=== PATIENT | female | born 1955 | race Two or more races ===

== ENCOUNTER → 2017-09-05 15:42 | Outpatient (CLI) | payer OTHER, SELFPAY ==
--- NOTE | 2017-09-05 15:49 | MM_ITS ---
MM Dig screening mamm BI w/CAD CAD Screening ORDERING PHYSICIAN : Noe Aguilar PATIENT AGE: 61 years GENDER: Female COMPARISON: Previous mammograms: August INDICATION: Routine screening. No hormones. No new complaints. Noncontributory family history TECHNIQUE: Standard CC and MLO images were obtained. R2 CAD reviewed. FINDINGS Low-density breast bilaterally with no dominant mass nor suspicious calcifications. No architectural distortion. No significant new findings. Bilateral follow-up in one year recommended. CAD highlights no areas of concern either. IMPRESSION: -------- NEGATIVE STABLE bilateral mammogram.No areas of concern low-density breast/fatty replacement breast facilitates mammography. BI-RADS Category: 1 Negative RECOMMENDED FOLLOW-UP: 1YR - 1 YEAR FOLLOW-UP (A letter has been sent to the patient regarding results of the study.)
== END ==
PROVIDERS: Family Provider Family Medicine; PCP Family Medicine; Visit Provider Obstetrics & Gynecology
DX: Z12.31 Encounter for screening mammogram for malignant neoplasm of breast (principal)
CPT/HCPCS: 77067

== ENCOUNTER → 2018-09-06 15:49 | Outpatient (CLI) | payer OTHER, SELFPAY ==
--- NOTE | 2018-09-06 15:54 | MM_ITS ---
MM Dig screening mamm BI w/CAD CAD Screening COMPARISON: Digital mammograms with CAD 09/05/2017 and 09/05/2016 INDICATION: There is no personal or family history of breast cancer TECHNIQUE: Standard CC and MLO images were obtained. R2 CAD reviewed. FINDINGS: The breasts are composed primarily of fat with very minimal scattered fibroglandular densities in each breast. There is no suspicious lesion and there are no suspicious microcalcifications. There are fatty replaced nodes in both axilla. There is a benign-appearing calcification right breast. IMPRESSION: Fatty type breast parenchyma with no suspicious lesion seen BI-RADS Category: 2 Benign Finding(s) RECOMMENDED FOLLOW-UP: 1YR - 1 YEAR FOLLOW-UP (A letter has been sent to the patient regarding results of the study.)
== END ==
PROVIDERS: PCP Family Medicine; Visit Provider Family Medicine
DX: Z12.31 Encounter for screening mammogram for malignant neoplasm of breast (principal)
CPT/HCPCS: 77067

== ENCOUNTER → 2018-10-08 15:18 | Outpatient (POV) | payer OTHER, SELFPAY | PROVIDERS: Visit Provider Dermatology | DX: Z00.00 Encounter for general adult medical examination without abnormal findings (principal) ==

== ENCOUNTER → 2019-10-06 13:31 | Outpatient (CLI) | payer OTHER, SELFPAY ==
--- NOTE | 2019-10-06 13:35 | MM_ITS ---
PROCEDURE: MM DIG SCREENING MAMM BI W/CAD CLINICAL INDICATION: SCREENING There is no personal or family history of breast cancer. COMPARISON: [facility] DIG MAMM-SCREEN EBONY W/CAD from 09/05/2016 [facility] MM Dig screening mamm BI w/CAD from 09/05/2017 [facility] MM Dig screening mamm BI w/CAD from 09/06/2018 TECHNIQUE: Standard CC and MLO images and 3D Tomosynthesis was obtained. R2 CAD reviewed. FINDINGS: The breasts are composed almost entirely of fat with very minimal scattered fibroglandular densities noted. There is no suspicious lesion in either breast and no suspicious microcalcifications. There are fatty replaced nodes in both axilla. Fernando images were reviewed. IMPRESSION: Fatty type breast parenchyma with no suspicious lesions seen BI-RAD Category: 1 Negative FOLLOW-UP: 1YR 1 Year Follow-up (A letter has been sent to the patient regarding results of the study.) Dictated by: Dr. David Herbert MD 10/07/2019 08:[address] David Herbert MD in [place] 10/07/2019 08:20
== END ==
PROVIDERS: PCP Family Medicine; Referring Provider Nurse Practitioner Women's Health; Visit Provider Nurse Practitioner Women's Health
DX: Z12.31 Encounter for screening mammogram for malignant neoplasm of breast (principal)
CPT/HCPCS: 77063; 77067

== ENCOUNTER → 2020-12-10 16:13 | Outpatient (CLI) | payer OTHER, SELFPAY ==
--- NOTE | 2020-12-10 16:15 | MM_ITS ---
PROCEDURE INFORMATION: Exam: MG Screening 3D Mammography Exam date and time: 12/10/2020 4:15 PM Age: 64 years old Clinical indication: Screening exam; No personal or family HX of malignancy TECHNIQUE: Imaging protocol: Screening tomosynthesis and 2D mammography including computer-aided detection (CAD) when performed. COMPARISON: 1. MG MM DIG SCREENING MAMM BI W/CAD 10/06/2019 1:46 PM 2. MG [facility] MM Dig screening mamm BI w/CAD 09/06/2018 4:09 PM FINDINGS: MAMMOGRAPHY: Breast composition: The breasts are almost entirely fatty. Mass: None. Architectural distortion: None. Calcifications: No suspicious calcifications. Asymmetric density: None. Skin thickening: None. Axillary adenopathy: None. IMPRESSION: No mammographic evidence of malignancy. Annual screening is recommended unless otherwise clinically indicated. ASSESSMENT: BI-RADS Category 1: Negative
== END ==
PROVIDERS: PCP Family Medicine; Visit Provider Nurse Practitioner Women's Health
DX: Z12.31 Encounter for screening mammogram for malignant neoplasm of breast (principal)
CPT/HCPCS: 77063; 77067

== ENCOUNTER → 2022-02-28 14:57 | Outpatient (POV) | payer OTHER, SELFPAY | PROVIDERS: Visit Provider Dermatology | DX: Z00.00 Encounter for general adult medical examination without abnormal findings (principal) ==

== ENCOUNTER → 2022-04-18 08:46 | Outpatient (CLI) | payer MEDICARE, SELFPAY ==
--- NOTE | 2022-04-18 08:53 | XR_ITS ---
FINAL REPORT CLINICAL HISTORY: PAIN FINDINGS: RIGHT FOOT Three views of the right foot demonstrate no acute fracture or dislocation. There are mild degenerative changes. There is chronic erosion versus postoperative change of the distal aspect of the 5th proximal phalanx with widening of the interphalangeal joint. There is a small plantar calcaneal spur. The soft tissues are unremarkable. IMPRESSION: Chronic erosion versus postoperative change, distal aspect of 5th proximal phalanx. Reviewed, Interpreted and Dictated by Pernell Del Rosario III, MD Transcribed by Briana Whyte Authenticated and [facility]
--- NOTE | 2022-04-18 08:53 | XR_ITS ---
FINAL REPORT CLINICAL HISTORY: PAIN FINDINGS: LEFT FOOT Three views of the left foot demonstrate no acute fracture or dislocation. There are mild degenerative changes. There is chronic erosion versus postoperative change of the distal aspect of the 5th proximal phalanx with widening of the interphalangeal joint. There is a small plantar calcaneal spur. The soft tissues are unremarkable. IMPRESSION: Chronic erosion versus postoperative change, distal aspect of 5th proximal phalanx. Reviewed, Interpreted and Dictated by Pernell Del Rosario III, MD Transcribed by Briana Whyte Authenticated and [facility]
== END ==
PROVIDERS: PCP Family Medicine; Visit Provider Podiatrist
DX: M79.672 Pain in left foot (principal); M79.671 Pain in right foot
CPT/HCPCS: 73630

== ENCOUNTER → 2022-05-16 07:33 | Outpatient (CLI) | payer MEDICARE, OTHER, SELFPAY ==
--- NOTE | 2022-05-16 07:41 | MR_ITS ---
FINAL REPORT TECHNIQUE: Multiplanar MR of the left foot without gadolinium enhancement. CLINICAL HISTORY: mass of left foot. LEFT FOOT PAIN WORSE ON MEDIAL SIDE. SWELLING IN FOOT AND LEG. NO INJURY OR TRAUMA. KNOT ON FOOT, PUT MARKER ON KNOT. FINDINGS: Marrow signal: Unremarkable Joints: Unremarkable Tendons:Visualized tendons are unremarkable Ligaments:Major ligaments intact Plantar Fascia:No evidence of tear Cystic mass along the dorsal lateral cuboid measures 16 x 16 x 9 mm. This could represent a ganglion cyst or other benign cystic lesion including dermatologic lesion given the extreme superficial location in the subcutaneous tissues. No tendinous or bony involvement. IMPRESSION: Superficial cystic mass as above. Reviewed, Interpreted and Dictated by Benoit Ricardo MD Transcribed by Sam Pacheco Authenticated and . [facility]
== END ==
PROVIDERS: PCP Family Medicine; Visit Provider Podiatrist
DX: M67.472 Ganglion, left ankle and foot (principal)
CPT/HCPCS: 73718

== ENCOUNTER → 2022-05-25 12:36 | Outpatient (CLI) | payer MEDICARE, OTHER, SELFPAY ==
--- NOTE | 2022-05-25 12:45 | XR_ITS ---
FINAL REPORT CLINICAL HISTORY: PREOPERATIVE RESPIRATORY CLEARANCE FINDINGS: Two views of the chest were obtained. The heart size and pulmonary vascularity are within normal limits. The mediastinum is normal. No acute pulmonary abnormality is identified. There is no pneumothorax. The bony thorax is intact. IMPRESSION: No active cardiopulmonary disease. Reviewed, Interpreted and Dictated by Pernell Del Rosario III, MD Transcribed by Eden Edmondson Authenticated and [facility]
--- NOTE | 2022-05-25 13:16 | ECG_ITS ---
APPROVED REPORT Exam: Resting ECG HR:58 bpm ECG Measurements Heart Rate 58 AXES SD 139 P 36 QRSd 92 QRS 61 QT 427 T 35 QTc 423 Conclusion SINUS BRADYCARDIA BORDERLINE ECG UNCONFIRMED REPORT Electronically signed by : Dean Myers MD 05/27/2022 17:41:50
== END ==
PROVIDERS: PCP Family Medicine; Visit Provider Podiatrist
DX: M77.41 Metatarsalgia, right foot (principal); M77.42 Metatarsalgia, left foot; Z87.39 Personal history of other diseases of the musculoskeletal system and connective tissue; Z98.890 Other specified postprocedural states
CPT/HCPCS: 71046; 93005

== ENCOUNTER 2022-06-07 08:52 | Day surgery (SDC) | payer MEDICARE, OTHER, SELFPAY ==
[2022-06-07] VITALS (10 sets, daily range): BP systolic 117–157; BP diastolic 57–96; PULSE 70–79; RESP 16–19; TEMP 32–36.4; O2SAT 95–98; BMI 28.8
--- NOTE | 2022-06-07 10:50 | EXP.ANES.CKL ---
[facility] Medical History Carpal tunnel syndrome Carpal tunnel syndrome on both sides History of gastroesophageal reflux (GERD) Hypertension Surgical History History of carpal tunnel release of both wrists History of tubal ligation Family History Other Family history of acute heart failure Family history of diabetes mellitus type II Social History Smoking Status: Former smoker alcohol intake: current substance use type: denies use current occupational status: employed Travel in the last 8 weeks: None household members: spouse housing: house marital status: caffeine: Yes do you feel safe at home: Yes victim of physical abuse: No victim of emotional abuse: No victim of sexual abuse: No would you like helpful sources: No [facility] Anesthesia Checklist Patient Identification Patient Identification: Arm Band Structural Data Admitted From: Home Planned Operative Procedure/s: Lapidus bunienectomy Consent for Planned Operative Procedure(s) Verified: Yes NPO Status Verified Time NPO: 00:00 Additional verifications Anesthesia Reactions: No Hx Blood Transfusions: No Blood Transfusion Reaction: No Airway Assessment C-Spine Mobility Assessed: Yes TMJ Mobility Assessed: Yes Dentition: Good Dentition Neurological Assessment Level of Consciousness: Awake Hx Seizures: No Numbness or tingling in extremities: No Anesthesia Plan Anesthesia Risk discussed: Yes Anesthesia Plan: Verified ASA Class: III Anesthesia Type: MAC w/Block
--- NOTE | 2022-06-07 11:14 | XR_ITS ---
FINAL REPORT CLINICAL HISTORY: Post op bunbrandon HT COMPARISON: April 18, 2022 FINDINGS: LEFT FOOT Three views of the left foot were obtained. A splint obscures detail. There are interval postoperative changes of the 1st tarsal metatarsal joint with a screw plate and multiple screws present. Multiple wires are present in the 2nd, 3rd, 4th and 5th digits. IMPRESSION: Postoperative changes as above. Reviewed, Interpreted and Dictated by Pernell Del Rosario III, MD Transcribed by Briana Whyte Authenticated and [facility]
--- NOTE | 2022-06-07 13:04 | SUR.OPER ---
[id number] family given update via preop staff
--- NOTE | 2022-06-07 13:17 | SUR.OPER ---
1317 family given update via Benoit Valenzuela RN
--- NOTE | 2022-06-07 14:33 | XR_ITS ---
FINAL REPORT CLINICAL HISTORY: BUNIONECTOMY/HAMMERTOE REPAIR fluoro time 1.24 FINDINGS: FLUORO TIME PROCEDURE: Fluoroscopy in the operating room. FINDINGS: Fluoroscopy time was provided by the radiology department for the clinical service. 2 films were obtained for bunionectomy/hammertoe repair Fluoroscopy exposure time: 1 minute 24 seconds IMPRESSION: See operative report. Reviewed, Interpreted and Dictated by Pernell Del Rosario III, MD Transcribed by Eden Edmondson Authenticated and [facility]
--- NOTE | 2022-06-07 15:27 | P.PNANES_ITS ---
[facility] Anesthesia Record Part I Anesthesia Record I Intake, IV Amount: 1,000 Estimated blood loss (mL): 5 Urine output (mL): 400 Blood Products used (#): none Blood Pressure: 141/89 SaO2: 98 Pulse Rate: 79 Respiratory Rate: 18 Temperature: 97.4 F Patient is:: Drowsy and Stable Stable to PACU at:: 15:23
--- NOTE | 2022-06-07 15:37 | SUR.OPER ---
1430 family given update via Benoit Valenzuela RN
[2022-06-07 15:42] LABS: Microscopic,Cath URINE MICROSCOPIC (MICROSCOPIC)
--- NOTE | 2022-06-07 15:54 | EXP.OP.NOTE ---
Date of procedure: 06/07/22 Pre-op Diagnosis:: Left hallux valgus Left ganglion cyst Left foot metatarsalgia Left foot osteo-arthritis Left hammertoes 2?4, 5th curly toe Left tailor's bunionette Post-op Diagnosis:: Same Procedure performed:: Left lapidus bunionectomy (70121) HT 2-4 repair (25631) Reconstruction 5th curly toe (66990) Left tailor's bunionectomy Excision ganglion foot (52725) Application of graft Application of posterior splint Surgeon:: Melvi Urrutia DPM GRAPHIC PRODUCTION ARTIST:: Ray Serrano Anesthesia: GETA and regional (Left popliteal block) Estimated blood loss (mL): 30 Clinical Note:: Patient is a 66-year-old female non-smoker who presents for surgical evaluation of left foot soft tissue mass, bunion and hammertoe deformities. X-rays and MRI reviewed. Has a history of bilateral fifth toe arthroplasty years ago without complication. Has tried and failed conservative care including activity modification, taping, strapping, inserts, RICE protocol, NSAIDs, topical NSAIDs, stretching/physical therapy.? Soft tissue mass continues to grow and become painful with shoe gear. The patient has been instructed on the planned procedure, all risk versus benefits of the procedure to include bleeding, infection, nerve and blood vessel damage, need for further surgery, recurrence of deformity, recurrence of soft tissue mass, delay in healing of soft tissue or bone, failure of implant/hardware, failure of bones to heal, non-union, mal-union, prolonged pain and recovery, prolonged swelling, CRPS/RSD, DVT and anesthetic complications. No guarantees were given. All questions fully answered. The patient verbalized understanding and agreed to proceed with surgery. Written consent was obtained. Denies PM/FH of DVT. Discussed DVT/PE risk is low. Ok to take aspirin 81mg post op while immobilized. Necessary pre-op testing: CBC, CMP at PCP's office. CXR at [facility]-report noted wnl. EKG-NSR bradycardia. *Medical clearance per PCP, Dr. Juan Diego Gilman? Operative findings:: Left hallux valgus with bunion deformity. Some arthritic changes noted to the first tarsometatarsal joint. After the bunion was reduced and the foot loaded there was no excess first metatarsal plantar flexion. The pressure seem to be off the second metatarsal plantar so metatarsal osteotomy was not performed. No inter-metatarsal, intercuneiform instability on the splay test. Hammertoes 2?4 noted. Previous surgery on the fifth hammertoe which is now curly and floppy due to lack of proximal phalanx bone. Tailor's bunion noted. On the dorsal lateral foot over the cuboid, soft tissue mass noted underneath the extensor sheath consistent with a ganglion cyst. The cyst measured approximately two 1.5 x 1.5 x 1.0 cm. Operative note:: On this date and time, the patient was deemed an appropriate surgical candidate. With informed consent signed, the patient was taken to the operating theater. The patient was positioned supine. General anesthesia was induced. Tourniquet was applied to the mid-calf. The left lower extremity was prepped and draped in normal sterile fashion. IV Ancef infused. Left Lapidus bunionectomy: Tourniquet was inflated 225 mmHg. Attention directed to the dorsal medial foot where an incision was mapped out over the first metatarsal cuneiform joint. Dissection carried down full-thickness down to the level of the bone with care taken to maintain surgical hemostasis and preserve neurovascular structures. There was arthritic changes noted to the dorsal lateral aspect of the first tarsometatarsal (TMT) joint. First TMT release performed. Attention to is directed to the first interspace where a stab incision was made at the MTP joint just lateral to the EHL tendon. Lateral capsule incised and a complete suspensory ligament release was completed. There was reduction of the hallux valgus deformity noted. Next a pin was inserted dorsal medial parallel to the first TMT joint and the bunion deformity was reduced. Next in
[2022-06-07 16:30] LABS: Appearance,Urine/Cath CLEAR (Clear); Bilirubin,Cath Negative (Negative); Blood, Urine/Cath Negative (Negative); Color,Urine/Cath YELLOW (Yellow); Glucose,Urine/Cath (UA) Negative (Negative); Ketones,Urine/Cath Negative (Negative); Leukocyte Esterase,Cath Negative (Negative); Nitrate,Cath Negative (Negative); PH,Urine/Cath 7.5 (5.0-8.5); Protein,Urine/Cath Negative (Negative); Specific Gravity, Urine/Cath 1.015 (1.005-1.030); Urobilinogen,Cath 0.2 EU/dl (0.2)
[2022-06-07 16:49] LABS: Bacteria,Urine/Cath TRACE /lpf; Squamous Epithelial Ur./Cath Occasional #/hpf (0-5); WBC,Urine/Cath Occasional #/hpf (0-3)
[2022-06-08 07:18] VITALS: BP 151/84; PULSE 74; TEMP 36.4
--- NOTE | 2022-06-08 07:18 | P.PNANES_ITS ---
[facility] Anesthesia Record Part II Anesthesia Record Part II Discharge Time: 15:53 Destination: Surgical Day Care (OP Surgery) PACU nurse assessment reviewed?: Yes Patient Condition:: Good Anesthesia Complications:: None Swallowing reflex intact?: Yes Cyanosis?: No Blood Pressure: 151/84 Pulse Rate: 74 Temperature: 97.5 F Mental Status: Alert & Oriented Pain level:: 0 Nausea and/or vomitting:: None Intake, IV Amount: 0
== END 2022-06-07 16:29 | disposition home or self-care (01) ==
PROVIDERS: PCP Family Medicine; Visit Provider Podiatrist
PROC: (CPT 28090; principal; 2022-06-07 10:15)
DX: M20.42 Other hammer toe(s) (acquired), left foot (principal); M67.472 Ganglion, left ankle and foot; M20.5X2 Other deformities of toe(s) (acquired), left foot; M19.072 Primary osteoarthritis, left ankle and foot; M21.622 Bunionette of left foot; M77.42 Metatarsalgia, left foot
CPT/HCPCS: 28090; 28285 ×3; 28297; 28313; 73620; 73630; 76000; 81001; 88305; 96374; C1713; C1776; J2405; Q4211

== ENCOUNTER → 2022-06-28 10:35 | Outpatient (CLI) | payer MEDICARE, OTHER, SELFPAY ==
--- NOTE | 2022-06-28 10:40 | XR_ITS ---
FINAL REPORT CLINICAL HISTORY: left foot pain..3 weeks s/p surgery COMPARISON: May 2022 FINDINGS: 3 views of the left foot were obtained. There is a sideplate and screws securing the 1st tarsometatarsal joint. There are K-wires securing the 2nd, 3rd, and 4th digits. There is soft tissue swelling over the dorsum of the foot up to 1.6 cm. There is no acute bony abnormality. IMPRESSION: Postoperative changes as described. Reviewed, Interpreted and Dictated by Paul Vasquez MD Transcribed by Sam Pacheco Authenticated and [facility]
== END ==
PROVIDERS: PCP Family Medicine; Visit Provider Podiatrist
DX: Z98.890 Other specified postprocedural states (principal); M79.672 Pain in left foot
CPT/HCPCS: 73630

== ENCOUNTER → 2022-07-12 10:33 | Outpatient (CLI) | payer MEDICARE, SELFPAY ==
--- NOTE | 2022-07-12 10:39 | MM_ITS ---
PROCEDURE INFORMATION: Exam: MG Bilateral Screening 3D Mammography Exam date and time: 07/12/2022 10:34 AM Age: 66 years old Clinical indication: Screening examination TECHNIQUE: Imaging protocol: Bilateral Screening tomosynthesis and 2D mammography including computer-aided detection (CAD) when performed. COMPARISON: 1. MG MM DIG SCREENING MAMM BI W/CAD 12/10/2020 4:15 PM 2. MG MM DIG SCREENING MAMM BI W/CAD 10/06/2019 1:46 PM FINDINGS: MAMMOGRAPHY: Breast composition: The breasts are almost entirely fatty. Mass: None. Architectural distortion: None. Calcifications: No suspicious calcifications. Asymmetric density: None. Skin thickening: None. Axillary adenopathy: None. IMPRESSION: No mammographic evidence of malignancy. Annual screening is recommended unless otherwise clinically indicated. ASSESSMENT: BI-RADS Category 1: Negative
== END ==
PROVIDERS: PCP Family Medicine; Visit Provider Family Medicine
DX: Z12.31 Encounter for screening mammogram for malignant neoplasm of breast (principal)
CPT/HCPCS: 77063; 77067

== ENCOUNTER → 2022-07-20 09:21 | Outpatient (CLI) | payer MEDICARE, OTHER, SELFPAY ==
--- NOTE | 2022-07-20 09:27 | XR_ITS ---
FINAL REPORT CLINICAL HISTORY: post-op SURGERY JUN 07 FINDINGS: 3 views of the left foot were obtained. There is a sideplate and screws securing the 1st tarsometatarsal joint. There are 2 screws securing the osteotomies of the 2nd and 3rd PIP joints. The 5th proximal phalanx has an unusual tapered appearance that may be postoperative. There is widening of the 5th PIP joint. IMPRESSION: Postoperative changes as described. Reviewed, Interpreted and Dictated by Paul Vasquez MD Transcribed by Sam Pacheco Authenticated and [facility]
== END ==
PROVIDERS: PCP Family Medicine; Visit Provider Podiatrist
DX: G89.18 Other acute postprocedural pain (principal); R60.9 Edema, unspecified; Z98.890 Other specified postprocedural states; M79.672 Pain in left foot
CPT/HCPCS: 73630

== ENCOUNTER 2022-08-10 12:27 | Day surgery (SDC) | payer MEDICARE, OTHER, SELFPAY ==
[2022-08-01 14:17] VITALS: BMI 29.2
[2022-08-10 12:40] VITALS: BP 135/69; PULSE 67; RESP 18; TEMP 36.3; O2SAT 99
--- NOTE | 2022-08-10 13:08 | EXP.ANES.CKL ---
[facility] Disclaimer: The information contained in this section may have been updated after the patient was seen, as this information can be updated by other users. Medical History Carpal tunnel syndrome Carpal tunnel syndrome on both sides History of gastroesophageal reflux (GERD) Hypertension Surgical History History of carpal tunnel release of both wrists History of tubal ligation Hx of foot surgery Family History Other Family history of acute heart failure Family history of diabetes mellitus type I Family history of diabetes mellitus type II Family history of myocardial infarction Social History Smoking Status: Former smoker alcohol intake: current substance use type: denies use current occupational status: employed and disabled Travel in the last 8 weeks: None household members: spouse housing: house lives independently: Yes marital status: education level: high school caffeine: Yes special frederick needs: No agree to transfusion: No do you feel safe at home: Yes victim of physical abuse: No victim of emotional abuse: No victim of sexual abuse: No would you like helpful sources: No [facility] Anesthesia Checklist Patient Identification Patient Identification: Arm Band Structural Data Admitted From: Home Planned Operative Procedure/s: Colonoscopy Consent for Planned Operative Procedure(s) Verified: Yes Verified Documents: Surgical Consent and History and Physical NPO Status Verified Time NPO: 00:00 Additional verifications Anesthesia Reactions: No Hx Blood Transfusions: No Blood Transfusion Reaction: No Airway Assessment C-Spine Mobility Assessed: Yes TMJ Mobility Assessed: Yes Dentition: Good Dentition Neurological Assessment Level of Consciousness: Awake and Alert Anesthesia Plan Anesthesia Risk discussed: Yes Anesthesia Plan: Verified ASA Class: II Anesthesia Type: MAC
[2022-08-10 13:37] VITALS: O2SAT 97
--- NOTE | 2022-08-10 13:54 | P.PCN_ITS ---
Procedure: Date: 08/10/22 Patient Date of :: 1955 Procedure Performed:: Screening colonoscopy Indications:: History of polyps Performing Provider:: Niki Dumont MD Referring Provider:: Juan Diego Gilman Sedation:: Propofol Procedure:: After placing the patient in the left lateral decubitus position, the colonoscopy was gently inserted into the rectum and under direct visualization advanced to the cecum which was identified by transillumination in the right lower quadrant, identification of the ileocecal valve, appendiceal orifice, and cecal strap. Color, texture, mucosa, and anatomy of the colon were carefully examined with the scope. Findings:: Anal canal: normal Rectum: normal Sigmoid colon: normal without polyps or inflammatory changes, scattered di verticulosis Descending colon: normal without polyps or inflammatory changes Splenic flexure: normal Transverse colon: normal without polyps or inflammatory changes Hepatic flexure: normal Ascending colon: normal without polyps or inflammatory changes Cecum: normal Terminal ileum: not visualized Impression: diverticulosis, otherwise normal colonoscopy Specimens:: None Recommendations:: repeat exam in about FIVE years or so, sooner if clinically indicated. Complications:: None Estimated blood obtained (mL): 0
[2022-08-10 13:56] VITALS: BP 122/66; PULSE 79; RESP 15; TEMP 36.1; O2SAT 95
[2022-08-10 14:06] VITALS: BP 149/78; PULSE 66; RESP 16; O2SAT 93
[2022-08-10 14:16] VITALS: BP 130/65; PULSE 61; RESP 18; O2SAT 93
[2022-08-10 14:26] VITALS: BP 163/85; PULSE 61; RESP 18; O2SAT 99
== END 2022-08-10 14:26 | disposition home or self-care (01) ==
PROVIDERS: PCP Family Medicine; Visit Provider Internal Medicine Gastroenterology
PROC: 0DJD8ZZ Inspection of Lower Intestinal Tract, Via Natural or Artificial Opening Endoscopic (ICD-10-PCS; CPT 45378; principal; 2022-08-10 13:30)
DX: Z12.11 Encounter for screening for malignant neoplasm of colon (principal); K57.90 Diverticulosis of intestine, part unspecified, without perforation or abscess without bleeding; Z79.899 Other long term (current) drug therapy; Z86.010 Personal history of colon polyps
CPT/HCPCS: G0105

== ENCOUNTER → 2022-08-24 12:10 | Outpatient (CLI) | payer MEDICARE, OTHER, SELFPAY ==
--- NOTE | 2022-08-24 12:17 | XR_ITS ---
FINAL REPORT CLINICAL HISTORY: post-op COMPARISON: July 20, 2022 FINDINGS: LEFT FOOT Three views of the left foot were obtained. There are postoperative changes from arthrodesis of the 2nd and 3rd PIP joints as well as the 1st tarsal metatarsal joint. There is been a bony resection of the 5th middle phalanx. No acute fracture is identified. The hardware appears stable. IMPRESSION: Stable postoperative changes. Reviewed, Interpreted and Dictated by Benoit Ricardo MD Transcribed by Briana Whyte Authenticated and [facility]
== END ==
PROVIDERS: PCP Family Medicine; Visit Provider Podiatrist
DX: G89.18 Other acute postprocedural pain (principal); R60.9 Edema, unspecified; M79.672 Pain in left foot
CPT/HCPCS: 73630

== ENCOUNTER → 2022-10-04 07:34 | Outpatient (CLI) | payer MEDICARE, OTHER, SELFPAY ==
--- NOTE | 2022-10-04 07:34 | CT_ITS ---
FINAL REPORT TECHNIQUE: Axial images of the left foot was obtained without contrast. Sagittal and coronal reformatted images were obtained and reviewed. This study was performed with techniques to keep radiation doses as low as reasonably achievable (ALARA). Individualized dose reduction techniques using automated exposure control or adjustment of mA and/or kV according to the patient's size were employed. CLINICAL HISTORY: foot pain FINDINGS: There are postoperative changes from 1st tarsometatarsal joint fusion. The hardware is intact. There is bony fusion of the 1st tarsometatarsal joint. No acute fracture is identified. 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 Surgical screws are seen at the 2nd and 3rd PIP joints. These appear intact. There is nonspecific soft tissue edema without loculated fluid collection. No joint effusion is identified. IMPRESSION: No acute osseous abnormality. Postoperative changes with bony fusion. Nonspecific soft tissue edema. Reviewed, Interpreted and Dictated by Lilibeth Marquez MD Transcribed by Shara Black Authenticated and [facility]
== END ==
PROVIDERS: PCP Family Medicine; Visit Provider Podiatrist
DX: G89.18 Other acute postprocedural pain (principal); R60.9 Edema, unspecified; Z87.39 Personal history of other diseases of the musculoskeletal system and connective tissue; Z98.890 Other specified postprocedural states; M79.672 Pain in left foot; T84.293A Other mechanical complication of internal fixation device of bones of foot and toes, initial encounter
CPT/HCPCS: 73700

== ENCOUNTER 2022-10-18 11:00 | Outpatient (RCR) | payer MEDICARE, OTHER, SELFPAY ==
--- NOTE | 2022-08-01 11:59 | HMH.PTOPEV ---
PT Outpatient Evaluation Rehab PT Outpatient Evaluation Start: 08/01/22 10:03 Freq: Status: Active Protocol: Document 08/01/22 10:03 ELIANA (Rec: 08/01/22 11:59 ELIANA [id number]) E-signed By Heather Hurst, PT Outpatient Therapy Subjective History Subjective History Pt is a 66 y/o female that reports to PT s/p left lapidus , HT 2-4 repair, reconstruction of 5th curly toe, and ganglion removal performed on 06/07/22. Pt had postiperative radiographs performed at [facility] on 07/21/22 showing hardware intact and no sign of acute fracture or dislocation. Pt will discuss with MD of possible return to work on 09/11/21. Pt reports she discussed transitioning to a supportive tennis shoe with MD; however, is unable to find a shoe she is able to wear due to excessive swelling . Pt reports she has been using a slip on shoe around the house at times but is mostly ambulating in the boot. Pt reports main complaint of constant hypersensitivity of the entire foot and swelling that is worse with increased activity. Pt reports she is unable to sleep well at night due to hypersensitivity. Pt reports her left foot will also turn black at random times as well. Pt reports she has medial and lateral pain with prolonged standing or walking and also experiences sharp shooting pain from the heel to the toes. Medical History: GERD, Hypertension L foot girth: figure 8 52 cm, around MTPs 25 cm R foot girth: figure 8 48 cm, around MTPs 22 cm Observation: L foot discolored compared to R foot, incisions well healing without
--- NOTE | 2022-08-30 10:59 | HMH.RHREAS ---
Rehab Reassessment Rehab OP Re-assessment Start: 08/30/22 10:07 Freq: Status: Active Protocol: Document 08/30/22 10:07 ELIANA (Rec: 08/30/22 10:59 ELIANA [id number]) E-signed By Heather Hurst PT Rehab Re-assessment Subjective Subjective Pt reports she feels ~50% improved since starting PT. Pt reports her ankle and toe mobility has improved but she continues to have constant throbbing pain, hypersenitivity to light touch , intermittent swelling, and intermittent sharp, shooting pain of the lateral ankle. Pt reports she is unable to wear a supportive tennis shoe due to edema and is wearing slide sandals at all times. Pt states some days there is no swelling but other days it swells up like a balloon. I keep it elevated at all times when sitting because it hurts if it's not elevated. Pt also reports that the top of her foot will turn black and get warm almost everyday at random times. Pt reports she has an xray on 08/24/22 with good report and was also placed in an unna boot that date which she wore for 5 days . Pt erports the unna boot improved swelling temporarily but the next day was swollen again. Pt reports she is continuing to do her activities as usual and would like to go back to work as soon as possible. Pt reports Dr. Urrutia would like her to get a lymphedema pump along with implemented lymphedema treatment. Objective Objective Notes L ankle AROM: 30 PF, 10 DF, 12 eversion, 20 inversion L great toe extension: 12 L foot girth: figure 8 52 cm, around MTPs 25 cm L ankle MMT: DF 4+/5,
--- NOTE | 2022-10-02 12:06 | HMH.RHREAS ---
Rehab Reassessment Rehab OP Re-assessment Start: 08/30/22 10:07 Freq: Status: Active Protocol: Document 10/02/22 11:56 ELIANA (Rec: 10/02/22 12:06 ELIANA [id number]) E-signed By Heather Hurst PT Rehab Re-assessment Subjective Subjective Pt reports her foot seems to be doing better overall. Pt reports she continues to have swelling/edema of the dorsum of the foot and lateral ankle with prolonged weightbearing activities such as standing/ walking. Pt reports she is able to wear slip on shoes now but cannot fit insoles in the shoe due to edema at this time. Pt also reports continued tingling and hypersensitivity of the foot when the foot is swollen and intermittent lateral foot/ ankle pain. Pt reports she received an edema pump but was unable to use it due to stitches in the left leg following mole excision, reports she plans on using it today. Pt reports she saw Dr. Urrutia a few weeks ago who wants her to get a CT scan to examine the ankle further due to continued edema. Objective Objective Notes L ankle AROM: PF 40, DF 10, Eversion 10, Inversion 20 L foot girth: figure 8 52 cm L ankle MMT: 4+/5 grossly Assessment Progress Assessment Progressing as Expected Assessment Notes Pt demonstrated improved edema and plantar flexion AROM this date compared to last reassessment. Pt also reports improved subjective complaints this date compared to last reassessment. Pt will continue to benefit from skilled PT to further improve pain/ sensitivity, edema, ankle range of motion, ankle strength and functional activity tolerance to assist
== END 2022-10-18 11:05 | disposition home or self-care (01) ==
LOC: PT 11:00
PROVIDERS: PCP Family Medicine; Visit Provider Podiatrist
DX: M21.612 Bunion of left foot (principal); G89.18 Other acute postprocedural pain; Z98.890 Other specified postprocedural states
CPT/HCPCS: 97010; 97014; 97016; 97035; 97110; 97140; 97163; 97164; 97530; G0283

== ENCOUNTER → 2023-01-25 08:25 | Outpatient (CLI) | payer MEDICARE, OTHER, SELFPAY ==
--- NOTE | 2023-01-25 08:28 | XR_ITS ---
FINAL REPORT CLINICAL HISTORY: post-op left foot COMPARISON: 08/24/2022 FINDINGS: Three views of the left foot show postoperative changes of the 1st tarsometatarsal joint and the 2nd, 3rd, and 5th digits. There has been further healing of the 2nd and 3rd PIP arthrodesis sites. No acute fracture. IMPRESSION: Postoperative changes. Reviewed, Interpreted and Dictated by Benoit Ricardo MD Transcribed by Mckenzie Neumann Authenticated and [facility]
== END ==
PROVIDERS: PCP Family Medicine; Visit Provider Podiatrist
DX: G89.18 Other acute postprocedural pain (principal); Z98.890 Other specified postprocedural states; M79.672 Pain in left foot
CPT/HCPCS: 73630

== ENCOUNTER 2023-04-09 10:47 | Emergency (ER) | payer OTHER, SELFPAY ==
[2023-04-09 10:51] VITALS: BP 146/90; PULSE 67; RESP 18; TEMP 36.6; O2SAT 99; BMI 29.7
--- NOTE | 2023-04-09 11:20 | EXP.UTC ---
Discharge Plan Disposition Patient Disposition: Home, Self-Care Condition: Good Prescriptions Prescriptions: No Action losartan-hydrochlorothiazide 50-12.5 mg tablet 1 tab PO DAILY pantoprazole 40 mg tablet,delayed release (DR/EC) 40 mg PO DAILY famotidine 40 mg tablet 40 mg PO DAILY amitriptyline 10 mg tablet 10 mg PO meloxicam 7.5 mg tablet 7.5 mg PO DAILY ibuprofen 800 mg tablet 800 mg PO BID Qty: 60 3RF ergocalciferol (vitamin D2) [Vitamin D2] 1,250 mcg (50,000 unit) capsule 1,250 mcg PO WEEKLY 90 Days Qty: 13 3RF diclofenac sodium [Voltaren Arthritis Pain] 1 % gel 4 g topical QID PRN (Reason: pain) 30 Days Qty: 100 2RF Rx Instructions: Apply a small amount to knee, ankle, foot; for foot includes sole/toes/top of foot atorvastatin 20 MG tablet 20 mg PO DAILY multivitamin 1 EACH capsule 1 ea PO DAILY Fish Oil 300 MG capsule 300 mg PO DAILY Referrals Follow up/Referrals: Juan Diego Gilman [Primary Care Provider] - See instructions Amrit Burgess DO [Staff Physician] - See instructions Activity Restrictions/Add. Instructions Additional Instructions/Restrictions: Rest the extremity, apply ice for 15 minutes as tolerated three or four times per day, Wear the nupur wrap for loose compression, Elevate the extremity as tolerated while you are resting. Take ibuprofen for pain. Follow up with Dr. Burgess (orthopedics) if you continue to have symptoms. I put in a referral but you need to call his office and schedule an appointment. Follow up with your regular doctor. 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 She denies any other injury. Related Data Home Medications Medication Instructions Recorded Confirmed atorvastatin 20 mg tablet 20 mg PO DAILY Cholesterol 12/24/17 01/25/23 multivitamin 1 ea PO DAILY Supplement 12/24/17 01/25/23 omega-3 fatty acids 300 mg capsule 300 mg PO DAILY Supplement 12/24/17 01/25/23 (Fish Oil) famotidine 40 mg tablet 40 mg PO DAILY acid 05/02/22 01/25/23 losartan 50 mg-hydrochlorothiazide 1 tab PO DAILY HTN 05/02/22 01/25/23 12.5 mg tablet pantoprazole 40 mg tablet,delayed 40 mg PO DAILY Reflux/Acid reflux 05/02/22 01/25/23 release amitriptyline 10 mg tablet 10 mg PO 09/21/22 01/25/23 meloxicam 7.5 mg tablet 7.5 mg PO DAILY 09/21/22 01/25/23 Previous Rx's Medication Instructions Recorded ergocalciferol (vitamin D2) 1,250 1,250 mcg PO WEEKLY low vit D 3 06/06/22 mcg (50,000 unit) capsule (Vitamin months #13 caps D2) ibuprofen 800 mg tablet 800 mg PO BID pain, mild #60 tabs 06/06/22 diclofenac sodium 1 % topical gel 4 g topical QID PRN pain 30 days 08/29/22 (Voltaren Arthritis Pain) #100 grams Allergies Allergy/AdvReac Type Severity Reaction Status Date / Time No Known Allergies Allergy Verified 01/25/23 08:40 [facility] Disclaimer: The information contained in this section may have been updated after the patient was seen, as this information can be updated by other users. Medical History Carpal tunnel syndrome Carpal tunnel syndrome on both sides History of gastroesophageal reflux (GERD) Hypertension Surgical History History of carpal tunnel release of both wrists History of tubal ligation Hx of foot surgery left Family History (Reviewed 01/25/23
--- NOTE | 2023-04-09 11:25 | XR_ITS ---
FINAL REPORT CLINICAL HISTORY: pain FINDINGS: LEFT FOREARM 2 views of the elbow were obtained. There is no acute fracture or dislocation. The joint spaces are intact. Subcutaneous soft tissue swelling is seen at the medial aspect of the proximal forearm. No foreign body is identified. IMPRESSION: No acute bony abnormality. Reviewed, Interpreted and Dictated by Paul Vasquez MD Transcribed by Jolly Haque Authenticated and [facility]
--- NOTE | 2023-04-09 11:25 | XR_ITS ---
FINAL REPORT CLINICAL HISTORY: pain FINDINGS: LEFT ELBOW 3 views of the elbow were obtained. There is no acute fracture or dislocation. The joint spaces are intact. Subcutaneous soft tissue swelling is seen at the medial aspect of the proximal forearm. No foreign body is identified. IMPRESSION: No acute fracture Reviewed, Interpreted and Dictated by Paul Vasquez MD Transcribed by Jolly Hauqe Authenticated and [facility]
[2023-04-09 12:30] VITALS: BP 146/90; PULSE 67; RESP 18; TEMP 36.6; O2SAT 99
== END 2023-04-09 12:31 | disposition home or self-care (01) ==
PROVIDERS: Emergency Provider Nurse Practitioner Family; PCP Family Medicine
DX: S50.12XA Contusion of left forearm, initial encounter (principal); K21.9 Gastro-esophageal reflux disease without esophagitis; I10 Essential (primary) hypertension; W20.8XXA Other cause of strike by thrown, projected or falling object, initial encounter
CPT/HCPCS: 73080; 73090; 99203; 99212; G0463

== ENCOUNTER → 2023-05-29 09:28 | Outpatient (CLI) | payer MEDICARE, OTHER, SELFPAY ==
--- NOTE | 2023-05-29 09:33 | XR_ITS ---
FINAL REPORT CLINICAL HISTORY: post-op surgery x 1 year ago pain COMPARISON: 01/25/2023 FINDINGS: LEFT FOOT: Three views of the left foot were obtained. There is no acute fracture or dislocation. There are postoperative changes at the first tarsometatarsal articulation as well as the second and third proximal inner phalangeal joints. The hardware remains stable and has not significantly changed in appearance since the prior exam. Mild degenerative changes noted throughout the foot. There is also postop change of the distal aspect of the proximal phalanx fifth toe. There is no soft tissue abnormality. IMPRESSION: No acute bony abnormality. Postoperative changes as described above. Reviewed, Interpreted and Dictated by Pernell Del Rosario III, MD Transcribed by Evangelina Ansari Authenticated and [facility]
== END ==
PROVIDERS: PCP Family Medicine; Visit Provider Podiatrist
DX: G89.18 Other acute postprocedural pain (principal); M79.672 Pain in left foot
CPT/HCPCS: 73630

== ENCOUNTER → 2023-07-27 14:25 | Outpatient (CLI) | payer MEDICARE, OTHER, SELFPAY ==
--- NOTE | 2023-07-27 14:32 | MM_ITS ---
PROCEDURE INFORMATION: Exam: MG Bilateral Screening 3D Mammography Exam date and time: 07/27/2023 2:23 PM Age: 67 years old Clinical indication: Screening examination TECHNIQUE: Imaging protocol: Bilateral Screening tomosynthesis and 2D mammography including computer-aided detection (CAD) when performed. COMPARISON: 1. MG MM DIG SCREENING MAMM BI W/CAD 07/12/2022 10:34 AM 2. MG MM DIG SCREENING MAMM BI W/CAD 12/10/2020 4:15 PM FINDINGS: MAMMOGRAPHY: Breast composition: The breasts are almost entirely fatty. Mass: None. Architectural distortion: None. Calcifications: No suspicious calcifications. Asymmetric density: None. Skin thickening: None. Axillary adenopathy: None. IMPRESSION: No mammographic evidence of malignancy. Annual screening is recommended unless otherwise clinically indicated. ASSESSMENT: BI-RADS Category 1: Negative
== END ==
PROVIDERS: PCP Family Medicine; Visit Provider Family Medicine
DX: Z12.31 Encounter for screening mammogram for malignant neoplasm of breast (principal)
CPT/HCPCS: 77063; 77067

== ENCOUNTER 2023-10-25 15:07 | Outpatient (CLI) | payer MEDICARE, OTHER, SELFPAY ==
--- NOTE | 2023-10-25 15:16 | MR_ITS ---
FINAL REPORT TECHNIQUE: Multiplanar MR imaging of the left wrist with and without intravenous contrast. CLINICAL HISTORY: G. CYST marker placed on cyst COMPARISON: None FINDINGS: MRI LEFT WRIST WITH AND WITHOUT CONTRAST: Imaging of the left wrist was obtained with and without contrast, and reveals mild degenerative change present. No bone marrow edema or fracture is identified. The alignment of the carpal bones is unremarkable. There is extensor carpi ulnaris tendinosis and tenosynovitis present. The remainder of the extensor and flexor tendons are unremarkable. There is a marker placed overlying the radial and volar aspect of the wrist, and at the level of the marker there is a 16 x 8 mm cystic mass in the soft tissues, compatible with a ganglion cyst. There is mild peripheral enhancement of the cyst. The largest component of the cyst is just radial to the flexor carpi radialis tendon. IMPRESSION: 16 x 8 mm cystic mass on the radial and volar aspect of the wrist, compatible in appearance with a ganglion cyst. The largest component of the cyst is just radial to the flexor carpi radialis tendon. Extensor carpi ulnaris tendinosis and tenosynovitis are present. Reviewed, Interpreted and Dictated by Pernell Del Rosario III, MD Transcribed by Evangelina Ansari Authenticated and [facility]
[2023-10-25] MEDS: SODIUM CHLORIDE 0.9% 10ML SYR (RAD ONLY) 10 ML IV (17:33)
[2023-10-25] MEDS: GADOTERIDOL INJ 17ML SYRINGE 17 ML IV (17:34)
== END 2023-10-25 23:59 ==
LOC: RAD 15:08
PROVIDERS: PCP Family Medicine; Visit Provider Orthopaedic Surgery Adult Reconstructive Orthopaedic Surgery
DX: M25.532 Pain in left wrist (principal); M67.432 Ganglion, left wrist
CPT/HCPCS: 73223; A9576

== ENCOUNTER 2024-08-19 16:16 | Outpatient (CLI) | payer MEDICARE, OTHER, SELFPAY ==
--- NOTE | 2024-08-19 16:19 | MM_ITS ---
PROCEDURE INFORMATION: Exam: MG Bilateral Screening 3D Mammography Exam date and time: 08/19/2024 4:03 PM Age: 68 years old Clinical indication: Screening examination. TECHNIQUE: Imaging protocol: Bilateral Screening tomosynthesis and 2D mammography including computer-aided detection (CAD) when performed. COMPARISON: 1. MG MM DIG SCREENING MAMM BI W/CAD 07/27/2023 2:23 PM 2. MG MM DIG SCREENING MAMM BI W/CAD 07/12/2022 10:34 AM 3. MG MM DIG SCREENING MAMM BI W/CAD 12/10/2020 4:15 PM 4. MG MM DIG SCREENING MAMM BI W/CAD 10/06/2019 1:46 PM FINDINGS: MAMMOGRAPHY: Breast composition: The breasts are almost entirely fatty. Mass: None. Architectural distortion: None. Calcifications: No suspicious calcifications. Asymmetric density: None. Skin thickening: None. Axillary adenopathy: None. IMPRESSION: No mammographic evidence of malignancy. Annual screening is recommended unless otherwise clinically indicated. ASSESSMENT: BI-RADS Category 1: Negative.
== END 2024-08-19 23:59 | disposition home or self-care (01) ==
LOC: RAD 16:17
PROVIDERS: PCP Family Medicine; Visit Provider Family Medicine
DX: Z12.31 Encounter for screening mammogram for malignant neoplasm of breast (principal)
CPT/HCPCS: 77063; 77067